=== PATIENT | female | born 1960 | race African-American/Black ===

== ENCOUNTER 2018-03-31 19:29 | Emergency (ER) | payer MEDICAID ==
[~2018-03-31] VITALS: Ht 162.6 cm; Wt 65.8 kg
[~2018-03-31 19:29] MED LIST: AZITHROMYCIN250 MG ORAL; LISINOPRIL20 MG ORAL; PHENERGAN/CODE120 ML ORAL; TESSALON PERLE100 MG ORAL; bp med
[2018-03-31] MEDS ORDERED: Norco 5mg/325mg tab ORAL ONE (20:00)
[2018-03-31] MEDS ORDERED: Tetanus/Diptheria/Pertussis Vaccine 0.5ml Syr IM ONE (20:45)
[2018-03-31] MEDS ORDERED: Bacitracin Oint UD TOPIC ONE (20:45)
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
[2018-03-31] MEDS ORDERED: ROBAXIN500 MG PO (21:26)
[2018-03-31] MEDS ORDERED: TYLENOL EXTRA500 MG ORAL (21:26)
[2018-03-31 21:49] VITALS: BP 181/74
--- NOTE | 2018-04-01 10:31 | Diagnostic Imaging Report ---
Indication: Back pain Comparison: None Findings: 2 views of the thoracic spine were obtained. Normal alignment is demonstrated. Vertebral body heights and intervertebral disc heights are relatively normal. There is minimal narrowing of the intervertebral discs. The posterior elements including the facets are unremarkable. Soft tissues are unremarkable. Impression: No acute injury appreciated.
--- NOTE | 2018-04-01 10:34 | Diagnostic Imaging Report ---
Indication: Knee Pain 3 views of the left knee were obtained. Findings: No acute fracture, malalignment, or joint effusion are identified. Joint space is diffusely narrowed. Mild osteophytes noted. Impression: Negative for acute injury. Arthrosis
== END 2018-03-31 21:49 | disposition home or self-care (01) ==
LOC: EMR 20:16
DX: S80.02XA Contusion of left knee, initial encounter (principal); S40.212A Abrasion of left shoulder, initial encounter; W01.0XXA Fall on same level from slipping, tripping and stumbling without subsequent striking against object, initial encounter; Y92.414 Local residential or business street as the place of occurrence of the external cause; Z23 Encounter for immunization; I10 Essential (primary) hypertension; Z88.6 Allergy status to analgesic agent
CPT/HCPCS: 72070; 90471; 90715; 99284

== ENCOUNTER 2020-03-11 21:38 | Emergency (ER) | payer MEDICAID ==
[~2020-03-11] VITALS: Ht 162.6 cm; Wt 70.3 kg
[~2020-03-11 21:38] MED LIST changes: +ROBAXIN500 MG PO; +TYLENOL EXTRA500 MG ORAL
[2020-03-11 21:55] VITALS: BP 170/78
--- NOTE | 2020-03-11 21:55 | NUR ---
ED Nurse Note: Patient walked into ED from home for c/o feeling lightheaded and dizzy since mechanical fall around 1999 tonight. Patient states she was on the escalator and lost her balance causing her to fall forward and hit her head. She notes loss of consciousness, but is unable to state for how long. She denies n/v. No open wound or obvious head trauma. She is aaox4, breathing is normal and unlabored.
[2020-03-11] MEDS ORDERED: HYDROcodone/Acetamin 5/325 tab ORAL ONE (22:15)
--- NOTE | 2020-03-11 22:26 | Diagnostic Imaging Report ---
EXAM: CT Head Without Intravenous Contrast CLINICAL HISTORY: FALL TECHNIQUE: Axial computed tomography images of the head/brain without intravenous contrast. CTDI is 20 mGy and DLP is 505 mGy-cm. One or more of the following dose reduction techniques were used: automated exposure control, adjustment of the mA and/or kV according to patient size, use of iterative reconstruction technique. COMPARISON: No relevant prior studies available. FINDINGS: Brain: Unremarkable. No hemorrhage. No significant white matter disease. No edema. Ventricles: Unremarkable. No ventriculomegaly. Bones/joints: Unremarkable. No acute fracture. Soft tissues: Unremarkable. Sinuses: Unremarkable as visualized. No acute sinusitis. Mastoid air cells: Unremarkable as visualized. No mastoid effusion. IMPRESSION: Unremarkable head/brain CT.
--- NOTE | 2020-03-11 22:35 | Diagnostic Imaging Report ---
EXAM: CT Cervical Spine Without Intravenous Contrast CLINICAL HISTORY: FALL TECHNIQUE: Axial computed tomography images of the cervical spine without intravenous contrast. CTDI is 20.2 mGy and DLP is 505.2 mGy-cm. One or more of the following dose reduction techniques were used: automated exposure control, adjustment of the mA and/or kV according to patient size, use of iterative reconstruction technique. Coronal and sagittal reformatted images were created and reviewed. Axial reformatted images were created and reviewed. COMPARISON: No relevant prior studies available. FINDINGS: Vertebrae: Spine straightening could represent patient positioning or muscle spasm. No acute fracture. Discs/spinal canal/neural foramina: Moderate age-related multilevel degenerative spine findings. No spinal canal stenosis. Soft tissues: Unremarkable. Other findings: Bilateral TMJ arthrosis. IMPRESSION: 1. No acute traumatic injury. 2. Spine straightening could represent patient positioning or muscle spasm. 3. Moderate age-related multilevel degenerative spine findings. 4. Bilateral TMJ arthrosis.
[2020-03-11] MEDS ORDERED: HYDROCODON-ACE1 EA15 ORAL (22:38)
--- NOTE | 2020-03-11 22:38 | Emergency Room Report ---
History of Present Illness General Chief Complaint: Multiple Trauma/Fall Source: Patient Present Illness [facility] This is a 59-year-old female with history of high blood pressure. She presents with chief complaint of pain from multiple injury. She was on an escalator this afternoon. As she get to the top she said it jerked and she fell forward. She says she hit her head. She also complained of neck pain and left knee pain. Also with chest pain from hitting the ground. No loss of consciousness. Pain is 8 out of 10. Worse with movement. Better with rest. Has not take anything for this. Allergies: Coded Allergies: IBUPROFEN (Verified Allergy, Unknown, 11/18/13) COVID-19 Screening Contact w/high risk pt: No Experienced COVID-19 symptoms?: No COVID-19 Testing performed LAMP SHADE JOINER: No Patient History Past Medical History: see triage record, old chart reviewed, HTN Past Surgical History: none Pertinent Family History: none Social History: Denies: drug use Now: No Reviewed Nursing Documentation: PMH: Agreed; PSxH: Agreed Nursing Documentation-PMH Past Medical History: No Stated History Hx Hypertension: Yes Review of Systems Eye: Denies: eye pain, blurred vision ENT: Denies: ear pain, nose congestion, throat swelling Respiratory: Denies: cough, shortness of breath Cardiovascular: Reports: chest pain; Denies: palpitations Gastrointestinal: Denies: abdominal pain, diarrhea, nausea, vomiting Musculoskeletal: Reports: joint pain; Denies: back pain Skin: Denies: rash Neurological: Denies: headache, numbness Endocrine: Denies: increased thirst, increased urine Hematologic/Lymphatic: Denies: easy bruising All Other Systems: negative except mentioned in HPI Physical Exam Vital Signs Date Time Temp Pulse Resp B/P (MAP) Pulse Ox O2 Delivery O2 Flow Rate FiO2 03/11/20 21:44 98.1 67 20 170/78 (108) 99 Room Air Vitals with high blood pressure Sp02 EP Interpretation: reviewed, normal General Appearance: well appearing, no apparent distress, alert Head: normocephalic, other - Tenderness to left temporal area Eyes: bilateral eye PERRL, bilateral eye EOMI ENT: hearing grossly normal, normal pharynx Neck: full range of motion, supple, no meningismus, tender - Tenderness to the lower cervical area. No step-off. No anesthesia. Respiratory: chest non-tender, lungs clear, normal breath sounds Cardiovascular #1: regular rate, rhythm, no murmur Gastrointestinal: normal bowel sounds, non tender, no mass, no organomegaly, no bruit, non-distended Musculoskeletal: back normal, normal range of motion, gait/station normal, swelling - Tenderness to the left knee anteriorly. Knee is stable. Pulse normal. No deformity. Psychiatric: mood/affect normal Medical Decision Making Diagnostic Impression: Primary Impression: Head injury, acute Qualified Codes: S09.90XA - Unspecified injury of head, initial encounter Additional Impressions: Cervical strain, acute Qualified Codes: S16.1XXA - Strain of muscle, fascia and tendon at neck level, initial encounter Degenerative disc disease, cervical Contusion of left knee, initial encounter Chest wall contusion Qualified Codes: S20.219A - Contusion of unspecified front wall of thorax, initial encounter ER Course Patient with soft tissue injury from fall. No fracture or dislocation. No intracranial bleed. Chest X-Ray Diagnostic Results Chest X-Ray Diagnostic Results : Chest X-Ray Ordered: Yes # of Views/Limited/Complete: 1 View Indication: Chest Pain EP Interpretation: Yes Interpretation: no consolidation, no effusion, no pneumothorax, no acute cardiopulmonary disease Impression: No acute disease Electronically Signed by: Saad Rodriguez MD Other X-Ray Diagnostic Results Other X-Ray Diagnostic Results : X-Ray ordered: Left Knee xrays # of Views/Limited Vs Complete: Complete Indication: Pain EP Interpretation: Yes Interpretation: no dislocation, no soft tissue swelling, no fractures Impression: No acute disease Electronically Signed by: Saad Rodriguez MD CT/MRI/US Diagnostic Results CT/MRI/US Diagnostic Results #1: Imaging Test Ordered: CT head Impression Read by radiologist. Negative. CT/MRI/US Diagnostic Results #2: Imaging Test Ordered: CT C-spine Impression Read by radiologist. Multilevel degenerative spine findings. Last Vital Signs Date Time Temp Pulse Resp B/P (MAP) Pulse Ox O2 Delivery O2 Flow Rate FiO2 03/11/20 21:55 67 20 Room Air 03/11/20 21:55 98.1 170/78 99 Status: improved Disposition: HOME, SELF-CARE Condition: Stable Scripts Hydrocodone/Acetaminophen 5-325* (HYDROCODONE/ACETAMINOPHEN 5-325*) 1 Each Tablet 1 TAB ORAL Q6H PRN for For Pain, #30 TAB 0 Refills Prov: Rodriguez,Saad MD 03/11/20 Referrals: [facility] (PCP) Additional Instructions: Follow-up with your doctor in 7 days as needed. Return if symptoms worsen. Ice pack to the area. Saad Rodriguez MD Mar 11, 2020 22:38
[2020-03-11 22:47] VITALS: BP 150/70
--- NOTE | 2020-03-11 22:47 | NUR ---
Note undone in EDM - 03/11/20 at 2251 by [email or web address] ER DISCHARGE NOTE: Patient is cleared to be discharged per ERMD; all questions answered by ER MD and RN. Pt is aox4, on room air, with stable vital signs. Pt was given dc and prescription instructions. Pt was able to verbalize understanding; instructed to follow up with primary care physcian within one week. Pt id band removed. Pt is able to ambulate with steady gait. Pt took all belongings. Pt provided sandwich and beverage.
--- NOTE | 2020-03-11 22:47 | NUR ---
ER DISCHARGE NOTE: Patient is cleared to be discharged per ERMD, pt is aox4, on room air, with stable vital signs. pt was given dc and prescription instructions, pt was able to verbalize understanding, pt id band removed. pt is able to ambulate with steady gait. pt took all belongings.
--- NOTE | 2020-03-12 11:22 | Diagnostic Imaging Report ---
Indication: Knee pain, trauma Technique: 3 views of the left knee Comparison: None Findings: No acute fractures. No dislocations. No suprapatellar effusion. There is a traction osteophyte of the patella. Joint spaces are preserved. Impression: No acute bony trauma
--- NOTE | 2020-03-12 11:23 | Diagnostic Imaging Report ---
Indication: Chest pain status post fall Technique: One view of the chest Comparison: none Findings: Lungs and pleural spaces are clear. Heart size is normal. Impression: No acute process
== END 2020-03-11 22:47 | disposition home or self-care (01) ==
LOC: EMR 22:05
DX: S09.90XA Unspecified injury of head, initial encounter (principal); S16.1XXA Strain of muscle, fascia and tendon at neck level, initial encounter; M50.30 Other cervical disc degeneration, unspecified cervical region; S80.02XA Contusion of left knee, initial encounter; S20.219A Contusion of unspecified front wall of thorax, initial encounter; I10 Essential (primary) hypertension; Z88.6 Allergy status to analgesic agent; W19.XXXA Unspecified fall, initial encounter; Y92.9 Unspecified place or not applicable
CPT/HCPCS: 70450; 71045; 72125; 73562; Z7502; 99284

== ENCOUNTER 2020-07-21 23:49 | Emergency (ER) | payer MEDICAID ==
[~2020-07-21] VITALS: Ht 162.6 cm; Wt 65.8 kg
[~2020-07-21 23:49] MED LIST changes: +HYDROCODON-ACE1 EA15 ORAL
--- NOTE | 2020-07-22 00:20 | NUR ---
ED Nurse Note: Recieved pt walk in from home with c/o left leg pain x 2 weeks, pt thinks is a spider bite, states she did see spider but thought nothing, a few days later had pain and swelling and continued to worsen, pt left leg has swelling noted, pulses are present, ambulates with limp and rates pain at 10/10, pt denies injury to area or any other discomforts or complaints.
[2020-07-22] MEDS ORDERED: HYDROcodone/Acetamin 5/325 tab ORAL ONE (00:30)
[2020-07-22] MEDS ORDERED: HYDROcodone/Acetamin 5/325 tab ONE (00:33)
--- NOTE | 2020-07-22 00:33 | Emergency Room Report ---
History of Present Illness General Chief Complaint: Pain Source: Patient Present Illness HPI This is a 59-year-old female with a history of high blood pressure. She presents with treatment of left leg pain. She said that she had a spider bite to her left leg and it was swollen up 2 weeks ago. Also redness to the lateral aspect. The swelling came down but is still there. Now is tracking up to the knee. Worse with movement. She says she can walk on it last week. But she had to walk now. Denies any fever chills. No nausea no vomiting. Pain is 8 out of 10. Worse with walking. Better with rest. No other complaint. Allergies: Coded Allergies: IBUPROFEN (Verified Allergy, Unknown, 11/18/13) COVID-19 Screening Contact w/high risk pt: No Experienced COVID-19 symptoms?: No COVID-19 Testing performed ENVIR[employer]MENTAL SERVICES TECH: No Patient History Past Medical History: see triage record, old chart reviewed, HTN Past Surgical History: none Pertinent Family History: none Social History: Denies: smoking Now: No Immunizations: other Reviewed Nursing Documentation: PMH: Agreed; PSxH: Agreed Nursing Documentation-PMH Hx Hypertension: Yes Review of Systems Eye: Denies: eye pain, blurred vision ENT: Denies: ear pain, nose congestion, throat swelling Respiratory: Denies: cough, shortness of breath Cardiovascular: Denies: chest pain, palpitations Gastrointestinal: Denies: abdominal pain, diarrhea, nausea, vomiting Musculoskeletal: Reports: joint swelling, muscle pain; Denies: back pain, joint pain Skin: Denies: rash Neurological: Denies: headache, numbness Endocrine: Denies: increased thirst, increased urine Hematologic/Lymphatic: Denies: easy bruising All Other Systems: negative except mentioned in HPI Physical Exam Vital Signs Date Time Temp Pulse Resp B/P (MAP) Pulse Ox O2 Delivery O2 Flow Rate FiO2 07/22/20 00:04 98.1 83 18 176/86 (116) 96 Room Air Vitals with high blood pressure Sp02 EP Interpretation: reviewed, normal General Appearance: well appearing, no apparent distress, alert Head: normocephalic, atraumatic Eyes: bilateral eye PERRL, bilateral eye EOMI ENT: hearing grossly normal, normal pharynx Neck: full range of motion, supple, no meningismus Respiratory: chest non-tender, lungs clear, normal breath sounds Cardiovascular #1: regular rate, rhythm, no murmur Gastrointestinal: normal bowel sounds, non tender, no mass, no organomegaly, no bruit, non-distended Musculoskeletal: back normal, normal range of motion, gait/station normal, other - Left lower extremity: I see no evidence of any spider bite. No evidence of cellulitis. There is no redness. She is tender laterally to the proximal tib-fib area. No pitting edema. Knee is nontender and full range of motion. Psychiatric: mood/affect normal Medical Decision Making Diagnostic Impression: Primary Impression: Left leg pain Additional Impression: Left leg cellulitis ER Course This patient presents with left leg pain. She said that she had some infection before and was took some leftover antibiotics. Even though I see no obvious infection, we will put her on antibiotics. There is no evidence of DVT or abscess. Will discharge home. CT/MRI/US Diagnostic Results CT/MRI/US Diagnostic Results : Imaging Test Ordered: Ultrasound of left lower extremity Impression Negative per radiologist Last Vital Signs Date Time Temp Pulse Resp B/P (MAP) Pulse Ox O2 Delivery O2 Flow Rate FiO2 07/22/20 00:04 98.1 83 18 176/86 (116) 96 Room Air Status: improved Disposition: HOME, SELF-CARE Condition: Stable Scripts Furosemide* (LASIX*) 20 Mg Tablet 20 MG ORAL DAILY for Diuretic, #7 TAB Prov: Saad Rodriguez MD 07/22/20 Oxycodone/Acetaminophen 5-325* (PERCOCET 5-325 MG TABLET*) 1 Each Tablet 1 TAB ORAL Q6H PRN for For Pain, #20 TAB Prov: Saad Rodriguez MD 07/22/20 Doxycycline Monohydrate* (DOXYCYCLINE MONOHYDRATE*) 100 Mg Capsule 100 MG ORAL Q12H, #14 CAP 0 Refills Prov: Saad Rodriguez MD 07/22/20 Referrals: [facility] (PCP) Additional Instructions: Follow-up with your doctor in 7 days. Return if symptoms worsen. Saad Rodriguez MD Jul 22, 2020 00:33
[2020-07-22] MEDS ORDERED: Morphine Sulfate 10mg/ml Inj IM ONE (00:45)
[2020-07-22] MEDS ORDERED: PERCOCET 5-3251 EACH ORAL (03:14)
[2020-07-22] MEDS ORDERED: FUROSEMIDE20 M1 ORAL (03:14)
[2020-07-22] MEDS ORDERED: DOXYCYCLINE MO100 MG ORAL (03:14)
--- NOTE | 2020-07-22 03:22 | Diagnostic Imaging Report ---
EXAM: US Duplex Left Lower Extremity Veins CLINICAL HISTORY: PAIN TECHNIQUE: Real-time duplex ultrasound scan of the left lower extremity veins integrating B-mode two-dimensional vascular structure, Doppler spectral analysis, color flow Doppler imaging and compression. COMPARISON: No relevant prior studies available. FINDINGS: Deep veins: No DVT in the visualized common femoral, femoral, proximal deep femoral or popliteal veins. The veins demonstrate normal color flow, are normally compressible, with normal phasic flow and/or augmentation response. Superficial veins: Unremarkable. No thrombus in the greater saphenous vein. Soft tissues: No acute findings. IMPRESSION: No DVT within the left lower extremity.
[2020-07-22 03:28] VITALS: BP 176/86
--- NOTE | 2020-07-22 03:29 | NUR ---
Patient discharged home with All her belongings, ACI given with RX -explained, understood.
== END 2020-07-22 03:25 | disposition home or self-care (01) ==
LOC: EMR 07-22 00:28
DX: L03.116 Cellulitis of left lower limb (principal); I10 Essential (primary) hypertension; Z88.6 Allergy status to analgesic agent
CPT/HCPCS: 36415; 85379; 93971; 96372; J2270; Z7502; 99284